=== PATIENT | male | born 2000 | race African-American/Black ===

== ENCOUNTER 2020-02-01 01:33 | Emergency (ER) | payer BC, OTHER ==
[2020-02-01] MEDS ORDERED: AZITHROMYCIN 500 MG TAB PO STA (02:20)
[2020-02-01] MEDS ORDERED: cefTRIAXone 250 MG VIAL IM STA (02:20)
--- NOTE | 2020-02-01 02:24 | CT ---
EXAM: CT Head Without Intravenous Contrast CLINICAL HISTORY: ITS.REASON CT Reason: head trauma TECHNIQUE: Axial computed tomography images of the head/brain without intravenous contrast. CTDI is 49.21 mGy and DLP is 1113.4 mGy-cm. This CT exam was performed using one or more of the following dose reduction techniques: automated exposure control, adjustment of the mA and/or kV according to patient size, and/or use of iterative reconstruction technique. COMPARISON: No relevant prior studies available. FINDINGS: Brain: Unremarkable. No hemorrhage. No significant white matter disease. No edema. Ventricles: Unremarkable. No ventriculomegaly. Bones/joints: Unremarkable. No acute fracture. Soft tissues: Unremarkable. Sinuses: Unremarkable as visualized. No acute sinusitis. Mastoid air cells: Unremarkable as visualized. No mastoid effusion. IMPRESSION: Normal head/brain CT.
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
[2020-02-01 02:55] LABS: Appearance,Urine Clear (Clear); Bilirubin,Urine Negative (Negative); Blood,Urine Negative (Negative); Color,Urine Yellow; Glucose,Urine (UA) Negative (Negative); Ketones,Urine Trace (Negative); Leukocyte Esterase,Urine Large (Negative); Mucus,Urine Many /hpf; Nitrite,Urine Negative (Negative); PH, Urine 6.5 (5.0-8.0); Protein,Urine 1+ (Negative); RBC,Urine 7 /hpf (0-5); Specific Gravity,Urine 1.035 (1.001-1.035); WBC,Urine 103 /hpf (0-5)
[2020-02-01] MEDS ORDERED: CEPHALEXIN 500MG STARTER PACK 4 CAP BTL PO STA (03:00)
[2020-02-01 03:41] VITALS: BP 108/79; PULSE 85; RESP 16; TEMP 98.4
== END 2020-02-01 03:40 | disposition home or self-care (01) ==
LOC: EC 01:33
DX: S01.01XA Laceration without foreign body of scalp, initial encounter (principal); N39.0 Urinary tract infection, site not specified; F17.200 Nicotine dependence, unspecified, uncomplicated; X99.0XXA Assault by sharp glass, initial encounter; Y92.009 Unspecified place in unspecified non-institutional (private) residence as the place of occurrence of the external cause
CPT/HCPCS: 81001; 87491; 87591; 87086; 70450; 99284; 96372; 12001; J0696